=== PATIENT | female | born 1980 | race Asian ===

== ENCOUNTER → 2017-05-31 | Outpatient (CLI) | payer OTHER | LOC: FIMAGING 13:30 | PROVIDERS: ATTEND Obstetrics & Gynecology | DX: O09.522 Supervision of elderly multigravida, second trimester (principal); Z3A.18 18 weeks gestation of pregnancy; Z98.891 History of uterine scar from previous surgery ==

== ENCOUNTER → 2017-06-24 | Outpatient (CLI) | payer OTHER | LOC: FIMAGING 12:23 | PROVIDERS: ATTEND Obstetrics & Gynecology | DX: O09.522 Supervision of elderly multigravida, second trimester (principal); O34.219 Maternal care for unspecified type scar from previous cesarean delivery; Z3A.22 22 weeks gestation of pregnancy ==

== ENCOUNTER 2017-10-22 05:41 | Inpatient (IN) | payer OTHER ==
--- NOTE | 2017-10-21 18:44 | GHP ---
[f rep st] PREOP HISTORY AND PHYSICAL DATE OF ADMISSION: 10/22/2017 PROJECTED DATE OF SURGERY: 10/22/2017 on Obstetric service. HISTORY: Upon admission, the patient is a 37-year-old, G2, P1, at 39+ weeks' gestation with an estim ated due date of 10/27/2017, who presents for scheduled repeat section. Patient had a previ ous section for arrest of dilation and has planned on repeat. The patient declines a trial of labor, especially in light of an LGA infant. The patient also wants to optimize for cancer reduct ion bilateral salpingectomies. This would also provide permanent sterilization. The patient has bee n having good movement. No signs of regular contractions. Bag of calderon intact and the patien t has not had any bleeding. The patient was thoroughly counseled as to the risks and benefits of rep eat and bilateral salpingectomies. The patient signed consent forms. The patient also mickie balized the plan if both tubes cannot be removed, then the patient desires 1 tubal removal and a tuba l ligation on the other side. CARE: The patient has been with [facility] since 8 weeks' gestation. The patien t has had a relatively uncomplicated course. A 20 week ultrasound revealed LGA and a follow up ultrasound at 32 weeks' gestation showed continued LGA and estimated weight of the 98th perc entile and normal fluid. The patient has not had any signs of gestational diabetes with normal testi ng in . Patient does have a strong family history of cancer with her mother having ovarian cancer and maternal aunt with uterine cancer and a maternal cousin with ovarian cancer. The patient was tested and is BRCA negative. LABS: Maternal blood type O positive with negative antibody screen. RPR nonreactive. Rube lla low immune. Hepatitis B surface antigen negative. HIV negative. Standard panel was negative. Initial hematocrit was 38% and was rechecked and found to be 36%. Urinalysis and culture were negati ve. Pap smear normal. Gonorrhea and chlamydia were negative. Verifi testing was negative with MSAF P negative. The 1-hour Glucola was 88. GBS testing was negative. PAST MEDICAL HISTORY: Significant for history of kidney stones that continued to be present at this time. The patient had an attempt for kidney stone removal in 2007 at which time she had a complicate d surgery and a difficult postoperative course and never after that pursued having the kidney stones removed. Also history of UTIs in the past with the last one in January 2017. PAST SURGICAL HISTORY: Appendectomy in 2008, section in 2010. In 2007, laparoscopic approa ch for removal of kidney stones at which time the patient reports that upon entry with the trocar, th e right lung was punctured and the patient began decompensating in surgery. Due to the collapsed georgina g, the patient's surgery was discontinued and the kidney stones actually were not removed. The patie nt was extubated soon after surgery. However, states she was in the ICU setting for 4-5 days. She d oes recall getting antibiotics, but was in serious condition. PAST OBSTETRIC HISTORY: In February 2011, a viable female at 8 pounds 4 ounces, delivered by section under an epidural after 36 hours of labor. The patient had ruptured membranes and then was i nduced and the patient reports her cervix would not dilate. Patient reports getting a significant rhianna thematic, pruritic rash that her prior physicians diagnosed as PUPPPs in the period. The p atient states it was not when she was in the hospital, but within the first couple weeks she began to get a significant rash on her legs and was told that it was PUPPPs. ALLERGIES: The patient gets hives with sulfa medication as well as IVP dye. CURRENT MEDICATIONS: vitamins. SOCIAL HISTORY: The patient is , lives with her and their daughter. The patient is a nonsmoker. No alcohol or drug use. PHYSICAL EXAM: GENERAL: Upon admission, the patient is a well-developed, well-nourished, white fema le, in no physical distress at the time of preop. VITAL SIGNS: The patient is clinically afebrile. Blood pressure 94/58. Urinalysis is negative for protein and glucose and the patient's weight is 15 5 pounds. LUNGS: Clear to auscultation bilaterally. CARDIOVASCULAR: Regular rate and rhythm. ABD OMEN: Shows a gravid uterus at 38 cm fundal height with heart tones in the 150s. PELVIS: Def erred. No signs of rash or pruritus. EXTREMITIES: Nontender. No edema. ASSESSMENT: Intrauterine at 39+ weeks' gestation. Plan is for a scheduled on at 39 weeks. Previous section and declines trial of labor. Patient desires bilate ral salpingectomy for cancer risk reduction. Rubella low immune. History of pneumothorax during lap aroscopy in 2007 with a surgical injury causing the complication. History of PUPPPs. PLAN: The patient will present for repeat and bilateral salpingectomy. She will get preop erative antibiotics and use SCDs through the surgery. /[id number]/MODL
[2017-10-22] MEDS ORDERED: LR 1,000 ML IV SCH (05:48)
[2017-10-22] MEDS ORDERED: CITRIC ACID/SODIUM CITRATE 30 ML UDCUP PO ONE (05:48)
[2017-10-22] MEDS ORDERED: LR 500 ML IV ONE (05:48)
[2017-10-22] MEDS ORDERED: ceFAZolin 2 GM/DEXTROSE 100 ML IV ONE (05:48)
[2017-10-22] MEDS ORDERED: ceFAZolin 2 GM/SWFI 2 GM/20 ML SYR IVP ONE (06:00)
[2017-10-22 06:26] LABS: PLATELET COUNT 202 10^3/uL (150-400)
--- NOTE | 2017-10-22 07:10 | PREANESOB ---
Obstetric Pre-Anesthesia Info - General Info Proposed Procedure: cs : 2 Para: 1 MOISES: 10/27/17 Gestational Age: 39 week(s) and 2 day(s) - Info Status: Full Term Monitors: External FHR Pattern: Reassuring - Labor Status Indications for Current Section: Elective/Repeat Labor Epidural: No Anesthesia ROS: hx of kidney stones, positive ppd w neg sym[ptoms, likely remote hep A, hx of pneumothorax after kidney stone surgery, otherwise negative ros. allergies to sulfa and ivp dye Allergies/Adverse Reactions: Allergy/AdvReac Type Severity Reaction Status Date / Time Sulfa (Sulfonamide Allergy Verified 10/21/17 17:27 Antibiotics) Visit Medications: Generic Name Dose Route Start Last Admin Trade Name Freq PRN Reason Stop Dose Admin Lactated Ringer's 1,000 mls @ 125 mls/hr 10/22/17 05:48 Lr IV 10/23/17 05:47 CONT CONY Discontinued Medications Generic Name Dose Route Start Last Admin Trade Name Freq PRN Reason Stop Dose Admin Citric Acid/Sodium Citrate 30 ml 10/22/17 05:48 Bicitra PO 10/22/17 05:49 ONCALL ONE Lactated Ringer's 500 mls @ 0 mls/hr 10/22/17 05:48 Lr IV 10/22/17 05:49 ONCE ONE As Directed Cefazolin Sodium 2 gm in 20 mls @ 200 mls/hr 10/22/17 06:00 Cefazolin Syringe IVP 10/22/17 06:05 ONCALL ONE - Anesthesia History Response to Local Anesthetics: Normal Anesthesia & Operative History: No Prior Problems Family Anesthesia History: Negative - Social History Substance Use/Abuse: Denies - Vital Signs Latest Vital Signs (Nursing): Temp Pulse Resp BP Pulse Ox 36.8 C 98/67 L 95 10/22/17 06:34 10/22/17 06:34 10/22/17 06:34 Height/Weight (Nursing): Height 158.75 cm Weight 69.853 kg - Focused Exam Neck exam: FROM Mallampati Score: Class 2 Mouth exam: normal dental/mouth exam Pulmonary: no respiratory distress Cardiovascular: regular rate and rhythym Labs: 10/22/17 06:15 Patient ABO/Rh O POSITIVE 10/22/17 06:15 - Plan Consent Signed and on Chart: Yes Patient/Guardian Understands and Agrees to Plan: Yes
--- NOTE | 2017-10-22 07:32 | PDHPUP ---
History & Physical Update H&P update statement: This history and physical update is based on an assessment of the patient which was completed after admission or registration (within 24 hours), but prior to the surgery/procedure. H&P update: no change in patient's condition since H&P completed
[2017-10-22] MEDS ORDERED: fentaNYL 100 MCG/2 ML INJ ONE (07:35)
[2017-10-22] MEDS ORDERED: morphINE PF 5 MG/10 ML INJ ONE (07:36)
[2017-10-22] MEDS ORDERED: LIDOCAINE 1% 300 MG/30 ML SDV ONE (07:37)
[2017-10-22] MEDS ORDERED: MISOPROSTOL 200 MCG TAB ONE (07:38)
[2017-10-22] MEDS ORDERED: HYDROCODONE/APAP 5/325 TAB PO PRN (08:44)
[2017-10-22] MEDS ORDERED: ONDANSETRON 4 MG/2 ML VIAL IVP PRN (08:44)
[2017-10-22] MEDS ORDERED: MEPERIDINE 25 MG/ML SYR IVP PRN (08:44)
[2017-10-22] MEDS ORDERED: fentaNYL 100 MCG/2 ML INJ IVP PRN (08:44)
[2017-10-22] MEDS ORDERED: HYDROmorphONE/DILAUDID 1 MG/ML INJ IVP PRN (08:44)
[2017-10-22] MEDS ORDERED: PHENYLEPHRINE HCL 100 MCG/ML SYR IVP PRN (08:44)
[2017-10-22] MEDS ORDERED: NALOXONE HCL 0.4 MG/ML INJ IVP PRN ×2 (08:44→08:49)
--- NOTE | 2017-10-22 09:27 | POSTANESTH ---
Post Anesthetic Evaluation Cardiovascular Status: Normal, Stable Respiratory Status: Normal, Stable Level of Consciousness/Mental Status: Can Participate in Eval Pain Control: Adequate, Prn Tx Ordered Nausea/Vomiting Control: Adequate, Prn Tx Ordered Complications Possibly Related to Anesthesia: None Noted
[2017-10-22] MEDS ORDERED: ACETAMINOPHEN 325 MG TAB PO PRN (09:36)
--- NOTE | 2017-10-22 09:57 | OBDEL ---
Info Type: Repeat Presentation at Delivery: Vertex L&D Analgesia/Anesthesia Type: Spinal GBS+: No Intrapartum Medications: Discontinued Medications Generic Name Dose Route Start Last Admin Trade Name Tommy PRN Reason Stop Dose Admin Citric Acid/Sodium Citrate 30 ml 10/22/17 05:48 10/22/17 07:26 Bicitra PO 10/22/17 05:49 30 ml ONCALL ONE Administration Cefazolin Sodium 2 gm in 20 mls @ 200 mls/hr 10/22/17 06:00 10/22/17 07:26 Cefazolin Syringe IVP 10/22/17 06:05 20 mls ONCALL ONE Administration - Infant Care Provider Weed Sprayer/ADJUNCT POLITICAL SCIENCE INSTRUCTOR: Shirley Daly Operative Report - Delivery Pre-op Diagnoses: IUP at 39 wks, PCS, declines OSMAR, undesired fertility and FHx of ovarian cancer Post-op Diagnoses: same, delivered History of Prior Section: Yes Number of Prior Sections: 1 Indications for Prior Section: Arrest of Dilation Indications for Current Section: Elective/Repeat Procedure: Scheduled, Low Transverse, Other (Specify) (salpingectomies, bilateral) Surgeon: Krista Howard Servomechanism Designer: Marianela Bucio Anesthesiologist: Solo Murry Findings: normal uterus, ovaries bilateral and tubes. clear fluid upon amniotomy. Thick ASCENCION with no easy visceral peritoneum for bladder flap - bladder not taken down. No concern for scarring up high. tubes removed without problems. single layer closure on hysterotomy - good hemostasis. Specimen(s)/Path: Fallopian Tube(s) IV Fluid (ml): 2,100 EBL: 800 Data MOISES: 10/27/17 Gestational Age: 39 week(s) and 2 day(s) Goins Delivery Date: 10/22/17 Delivery Time: 08:20 Sex of : Male Score (1 Min): 9 Score (5 Min): 9 ICD10 Worksheet Patient Problems: Problems Problem Status Onset Status post bilateral salpingectomy Acute S/P repeat low transverse Acute
[2017-10-22] MEDS ORDERED: MEASLES,MUMPS&RUBELLA VACC/PF 0.5 ML VIAL SC ONE (10:13)
[2017-10-22] MEDS ORDERED: KETOROLAC 30 MG/1 ML SDV ONE (10:43)
[2017-10-22] MEDS: KETOROLAC 30 MG/1 ML SDV IVP SCH ×3 (10:50→23:20)
--- NOTE | 2017-10-22 11:40 | PDMN ---
Medical Necessity Medical necessity: Patient meets inpatient criteria per physician notes and [facility] S-350 Delivery.
[2017-10-23] MEDS: KETOROLAC 30 MG/1 ML SDV IVP SCH (06:12)
--- NOTE | 2017-10-23 10:32 | OBPP ---
Progress Note Assessment/Plan: Assessment: 37 y/o POD #1 s/p Rpt LTCS and BS doing well. Plan: mbulate and void today with assistance. support. Po pain meds and routine POC. 10/23/17 10:34 Subjective/ Course: 10/23/17 10:24 Pt is feeling tired today. She is up and ambulating this am without dizziness and light headedness. She has min lochia but hasn't voided yet, mcgregor was just removed. Baby is doing well was up cluster feeding all night. Objective: 10/23/17 06:30 Patient ABO/Rh O POSITIVE 10/22/17 06:15 Temp Pulse Resp BP Pulse Ox 36.8 C 102 H 18 87/63 L 94 10/23/17 08:00 10/23/17 08:00 10/23/17 08:00 10/23/17 08:00 10/23/17 08:00 Uterine Position/Fundal Height: Umbilicus -2 Uterine Tone: Firm Physical Exam - Physical Exam General Appearance: WD/WN, alert, no apparent distress Neck: non-tender, full range of motion, supple Respiratory: chest non-tender, lungs clear, normal breath sounds Cardiac/Chest: regular rate, rhythm Abdomen: normal bowel sounds, incision (c/d/i) Extremities: swelling (no), Alize's sign (neg)
[2017-10-23] MEDS: IBUPROFEN 600 MG TAB PO PRN ×2 (12:12→19:19)
[2017-10-23] MEDS: IRON POLYSAC/IRON HEME 28 MG TAB PO SCH (21:35)
[2017-10-24] MEDS: IBUPROFEN 600 MG TAB PO PRN ×3 (01:08→14:18)
[2017-10-24 07:20] VITALS: BP 106/71
--- NOTE | 2017-10-24 09:44 | OBPP ---
Progress Note Assessment/Plan: Assessment:POD#2 from R-LTCS - doing great, ready to go home Plan: dc home - Standard C/S, dc instructions reviewed - see dc summary. 10/24/17 09:38 Subjective/ Course: 10/23/17 10:24 Pt is feeling tired today. She is up and ambulating this am without dizziness and light headedness. She has min lochia but hasn't voided yet, mcgregor was just removed. Baby is doing well was up cluster feeding all night. 10/24/17 09:40 Doing well, ready to go home. + flatus, voiding without difficulty. Alex reg diet. going well. Objective: 10/23/17 06:30 Patient ABO/Rh O POSITIVE 10/22/17 06:15 Temp Pulse Resp BP Pulse Ox 36.1 C 71 18 106/71 95 10/24/17 07:17 10/24/17 07:17 10/24/17 07:17 10/24/17 07:17 10/24/17 07:17 gen - pleasant, NAD CV - RRR chest - CTAB abd - fundus firm at u-3 NT, + BS, inc - C/D/I with steri strips ext - calves NT, trace edema Uterine Position/Fundal Height: Umbilicus -2 Uterine Tone: Firm
--- NOTE | 2017-10-24 09:55 | OBGCSDC ---
General Delivery Information - General Info : 2 Para: 2 Abortions: 0 Type: Repeat L&D Analgesia/Anesthesia Type: Spinal Admission Date: 10/22/17 Labs: Patient ABO/Rh O POSITIVE 10/22/17 06:15 Hct 30.9 % (38.0-47.0) L 10/23/17 06:30 - Hospital Course : 10/23/17 10:24 Pt is feeling tired today. She is up and ambulating this am without dizziness and light headedness. She has min lochia but hasn't voided yet, mcgregor was just removed. Baby is doing well was up cluster feeding all night. 10/24/17 09:40 Doing well, ready to go home. + flatus, voiding without difficulty. Alex reg diet. going well. - Delivery Providers Surgeon: Krista Howard Manager Auto: Marianela Bucio Anesthesiologist: Solo Murry - Delivery Number of Prior Sections: 1 Indications for Current Section: Elective/Repeat Surgical Procedures: Scheduled, Low Transverse, Other (Specify) (salpingectomies , bilateral) EBL: [address] [employer] Data MOISES: 10/27/17 Gestational Age: 39 week(s) and 4 day(s) Goins Delivery Date: 10/22/17 Delivery Time: 08:20 Weight (gm): 3912.234 g Discharge Information - Discharge Information Prescriptions: Hydrocodone/APAP 5/325 [[place] 5/325 (*)] 1 - 2 tab PO Q4HRS PRN #30 tab PRN Reason: Pain, Moderate Able To Take Po Ibuprofen [Motrin (*)] 600 mg PO Q6HRS PRN #30 tab PRN Reason: Inflammation Instruction/Follow Up: Two Weeks (incision check at 2 weeks), Six Weeks (6 week check)
[2017-10-24] MEDS: IRON POLYSAC/IRON HEME 28 MG TAB PO SCH (14:18)
== END 2017-10-24 15:16 | disposition home or self-care (01) | DRG 766 ==
LOC: FLD 05:41 → FOB 11:34
PROVIDERS: ADMIT Obstetrics & Gynecology; ATTEND Hospitalist
DX: O34.211 Maternal care for low transverse scar from previous cesarean delivery (principal); Z87.440 Personal history of urinary (tract) infections; Z87.442 Personal history of urinary calculi; Z87.59 Personal history of other complications of pregnancy, childbirth and the puerperium; Z80.41 Family history of malignant neoplasm of ovary; Z88.2 Allergy status to sulfonamides; Z3A.39 39 weeks gestation of pregnancy; Z37.0 Single live birth
CPT/HCPCS: J0690; J1885; J2274; J3010

== ENCOUNTER → 2018-11-25 | Outpatient (CLI) | payer OTHER | LOC: FIMAGING 10:08 | PROVIDERS: ATTEND Physician Assistant Medical | DX: N20.0 Calculus of kidney (principal) ==